=== PATIENT | female | born 1985 | race African-American/Black ===

== ENCOUNTER 2018-04-28 09:07 | Emergency (ER) | payer MEDICAID ==
--- NOTE | 2018-04-28 09:25 | EDPHY ---
H & P Stated Complaint: L flank pain x 1 day, burning with urination Sunday. Time Seen by Provider: 04/28/18 09:17 HPI/ROS: 32 yo F presents c/o left mid and lower back pain for 4 days, she states it feels deep in her back but that it also hurts to move. She denies nausea, vomiting or diarrhea. No fever or chills . She has had one episode of burning with urination. No frequency. No loss of bowel or bladder control. Review of systems As per HPI-back pain General no fever no chills no weakness HEENT no eye pain no eye discharge. No eye redness, no sore throat Respiratory no cough, no shortness of breath Cardiac no chest pain, no peripheral edema GI no abdominal pain, no diarrhea, no constipation, no nausea, no vomiting no flank pain, no hematuria, brief dysuria Musculoskeletal no myalgias, no joint pain Heme no easy bruising, no easy bleeding Endo no polyuria, no polydipsia Skin no rashes, no pruritus Neuro no syncope, no dizziness, no headaches Psych is no suicidal ideation, no homicidal ideation Source: Patient Exam Limitations: No limitations - Personal History LMP (Females 10-55): 15-21 Days Ago Current Tetanus Diphtheria and Acellular Pertussis (TDAP): Yes Tetanus Vaccine Date: 2017 - Medical/Surgical History Hx Asthma: No Hx Chronic Respiratory Disease: No Hx Diabetes: No Hx Cardiac Disease: No Hx Renal Disease: No Hx Cirrhosis: No Hx Alcoholism: No Hx HIV/AIDS: No Hx Splenectomy or Spleen Trauma: No Other PMH: L knee surgery ACL/meniscus repair - Social History Smoking Status: Never smoked - Physical Exam Exam: 32-year-old female alert and oriented no acute distress nontoxic appearance HEENT atraumatic normocephalic, extraocular muscles intact, anicteric Oropharynx negative for erythema negative exudate, tolerating her own secretions Neck supple no meningismus Lungs clear to auscultation bilaterally Heart regular rate and rhythm without murmur rub or gallop Abdomen nondistended normoactive bowel sounds soft nontender Back no CVA tenderness, no step-offs, no spinal tenderness Left paralumbar tenderness to palpation, worsened with sitting up and lateral bending Negative straight leg raise Gait intact, patient able to walk on toes and heels Extremities no cyanosis clubbing or edema Neuro alert and oriented, no focal deficits Constitutional: Initial Vital Signs Temperature (C) 37 C 04/28/18 09:13 Heart Rate 72 04/28/18 09:13 Respiratory Rate 16 04/28/18 09:13 Blood Pressure 141/79 H 04/28/18 09:13 O2 Sat (%) 93 04/28/18 09:13 O2 Delivery Mode Room Air Allergies/Adverse Reactions: No Known Allergies Allergy (Verified 04/28/18 09:13) Home Medications: Medication Instructions Recorded Cyclobenzaprine [Flexeril 10 MG 10 mg PO TID PRN #15 tab 04/28/18 (*)] Medical Decision Making - Diagnostics Imaging Results: Imaging Impressions Abdomen/Pelvis CT 04/28/18 09:54 Impression: No evidence for nephrolithiasis or hydronephrosis. Moderate constipation. Results called and discussed with Lexie Boyd MD on April 28, 2018 at 1041 hours. Attention: This CT examination is specifically designed to evaluate patients who are clinically suspected of having acute obstructive uropathy. This examination does not use radiographic contrast, and as such, provides only a limited evaluation of the abdomen, pelvis, and retroperitoneum. If there is further clinical suspicion for pathological conditions other than obstructive uropathy, a complete CT evaluation of the abdomen and pelvis utilizing intravenous, oral, and rectal contrast should be considered. ED Course/Re-evaluation: Patient seen and evaluated for left flank/left lumbar back pain. Urinalysis negative CBC within normal limits BMP within normal limits CT abdomen and pelvis to rule out obstructive uropathy negative Impression Mid and lower back strain Plan Ibuprofen Acetaminophen Flexeril Follow-up PCP Differential Diagnosis: Differential diagnosis considered but not limited to: Urinary tract infection, pyelonephritis, kidney stone, back strain, herpes zoster - Data Points Laboratory Results: 04/28/18 09:54 POC Sodium 143 mEq/L mEq/L (135-145) POC Potassium 3.4 mEq/L mEq/L (3.3-5.0) POC Chloride 105.0 mEq/L mEq/L (97-110) POC Total CO2 26 mEq/L mEq/L (22-31) POC BUN 10 mg/dL mg/dL (7-23) POC Creatinine 0.9 mg/dL mg/dL (0.6-1.0) POC Glucose 97 mg/dL mg/dL (70-100) POC Calcium 9.1 mg/dL mg/dL (8.5-10.4) Medications Given: Discontinued Medications Sodium Chloride (Ns) 1,000 mls @ 0 mls/hr IV ONCE ONE PRN Reason: Wide Open Stop: 04/28/18 09:54 Last Admin: 04/28/18 09:56 Dose: 1,000 mls Ketorolac Tromethamine (Toradol) 30 mg IVP EDNOW ONE Stop: 04/28/18 09:54 Last Admin: 04/28/18 09:57 Dose: 30 mg Point of Care Test Results: CBC CBC Collection Date 04/28/18 CBC Collection Time 09:54 WBC 9.8 RBC 4.98 HGB 13.3 HCT 37.7 PLT 230 Neut # 7.4 Neut 75.9 LYMPH # 1.7 LYMPH 17.1 Other WBC # 0.7 Other WBC 7.0 MCV 75.7 Chemistry 04/28/18 09:54 POC Sodium 143 mEq/L mEq/L (135-145) POC Potassium 3.4 mEq/L mEq/L (3.3-5.0) POC Chloride 105.0 mEq/L mEq/L (97-110) POC Total CO2 26 mEq/L mEq/L (22-31) POC BUN 10 mg/dL mg/dL (7-23) POC Creatinine 0.9 mg/dL mg/dL (0.6-1.0) POC Glucose 97 mg/dL mg/dL (70-100) POC Calcium 9.1 mg/dL mg/dL (8.5-10.4) Basic Metabolic Panel BMP Collection Date 04/28/18 BMP Collection Time 09:54 Urine Collection Date 04/28/18 Collection Time 09:18 HCG Results Negative Urine Dip Collection Date 04/28/18 Collection Time 09:18 Specific [place] (1.002-1.030) 1.025 PH (5.0-7.5) 6.0 Leukocytes (Negative) Negative Nitrites (Negative) Negative Protein (Negative) Negative Glucose (Negative) Negative Ketones (Negative) Negative Urobilnogen (0.2-1.0 EU) 0.2 Bilirubin (Negative) Negative Blood (Negative) Negative Departure - Departure Disposition: Home, Routine, Self-Care Clinical Impression: Back strain Condition: Good Instructions: Low Back Strain (ED), Flank Pain (ED) Referrals: NONE *PRIMARY CARE P,. [Primary Care Provider] - As per Instructions [facility] [Provider Group] - As per Instructions Stand Alone Forms: Work Excuse Prescriptions: Cyclobenzaprine [Flexeril 10 MG (*)] 10 mg PO TID PRN #15 tab PRN Reason: Spasms
[2018-04-28] MEDS ORDERED: NS 1,000 ML IV ONE (09:53)
[2018-04-28] MEDS ORDERED: KETOROLAC 30 MG/1 ML SDV IVP ONE (09:53)
[2018-04-28 11:20] VITALS: BP 138/73
== END 2018-04-28 11:08 | disposition home or self-care (01) ==
LOC: CED 09:07
DX: R10.32 Left lower quadrant pain (principal); E86.9 Volume depletion, unspecified; M54.5 Low back pain
CPT/HCPCS: 74176-PO; 80048-PO; 96374; J1885